=== PATIENT | female | born 1990 | race Caucasian/White ===

== ENCOUNTER 2020-04-24 15:53 | Outpatient (CLI) | payer BC ==
[~2020-04-24] VITALS: Ht 177.8 cm; Wt 113.6 kg
[2020-04-24 15:45] VITALS: BP 129/89
== END 2020-04-24 16:25 | disposition home or self-care (01) ==
LOC: LDOP 15:53
PROVIDERS: ATTEND Obstetrics & Gynecology
DX: O26.893 Other specified pregnancy related conditions, third trimester (principal); R10.9 Unspecified abdominal pain; Z3A.38 38 weeks gestation of pregnancy
CPT/HCPCS: 59025

== ENCOUNTER 2020-05-01 05:17 | Inpatient (IN) | payer BC ==
[~2020-05-01] VITALS: Ht 177.8 cm; Wt 113.6 kg
[2020-05-01] MEDS ORDERED: OXYTOCIN 30U/ 0.9% NaCL 500ML 500 ML IV ONE (05:19)
[2020-05-01] MEDS ORDERED: D5%-LACTATED RINGERS 1,000 ML IV SCH (05:19)
[2020-05-01 05:30] VITALS: BP 188/77
[2020-05-01] MEDS ORDERED: ONDANSETRON 2MG/ML, 2ML IVPush PRN (05:30)
[2020-05-01] MEDS ORDERED: TERBUTALINE 1 MG/ML, 1ML IVPush PRN (05:30)
[2020-05-01] MEDS ORDERED: FENTANYL PF 100 MCG/2ML IVPush PRN (05:30)
[2020-05-01] MEDS ORDERED: TERBUTALINE 1 MG/ML, 1ML SQ PRN (05:30)
[2020-05-01] MEDS ORDERED: FENTANYL PF 100 MCG/2ML IV PRN (05:30)
[2020-05-01] MEDS ORDERED: PREN-3 PO (05:39)
[2020-05-01] MEDS ORDERED: NEWBORN KIT ONE (06:00)
[2020-05-01] MEDS: LACTATED RINGERS 1,000 ML IV SCH ×2 (06:01→08:57)
[2020-05-01 06:24] LABS: BASOPHILS # (AUTO) 0.03 x10^3/uL (0-0.1); BASOPHILS % (AUTO) 0 % (0-1); EOSINOPHILS # (AUTO) 0.05 x10^3/uL (0-0.4); EOSINOPHILS % (AUTO) 1 % (1-7); LYMPHOCYTES % (AUTO) 15 % (22-44); MD NO; MEAN CORPUSCULAR HEMOGLOBIN 33.1 pg (27.0-34.8); MEAN CORPUSCULAR VOLUME 97.2 fL (80-100); MONOCYTES % (AUTO) 5 % (2-9); NEUTROPHILS # (AUTO) 6.43 x10^3/uL (1.8-6.8); NEUTROPHILS % (AUTO) 79 % (42-75); PLATELET COUNT 125 x10^3/uL (130-400); RED BLOOD COUNT 3.65 x10^6/uL (3.82-5.3); RED CELL DISTRIBUTION WIDTH 14.1 % (9.6-15.2)
[2020-05-01] MEDS ORDERED: OXYTOCIN 30U/ 0.9% NaCL 500ML 500 ML IV PRN (06:30)
[2020-05-01] MEDS ORDERED: MISOPROSTOL 200 MCG TABLET ONE (06:32)
[2020-05-01] MEDS ORDERED: LIDOCAINE 1%, 20ML ONE ×2 (06:32→09:05)
[2020-05-01] MEDS ORDERED: OXYTOCIN 30U/ 0.9% NaCL 500ML 500 ML ONE ×2 (06:32→14:51)
[2020-05-01] MEDS ORDERED: CALCIUM CARBONATE 500 MG TAB.CHEW ONE ×3 (08:42→14:11)
[2020-05-01] MEDS: CALCIUM CARBONATE 500 MG TAB.CHEW PO PRN ×3 (08:44→14:12)
[2020-05-01] MEDS ORDERED: FENTANYL/BUPIV./NS/PF 250 ML EPIDCONT ONE ×2 (09:03→09:05)
[2020-05-01] MEDS ORDERED: LIDOCAINE/PF 1.5%-EPI 1:200K, 30ML ONE (09:05)
[2020-05-01] MEDS ORDERED: FENTANYL/BUPIV./NS/PF 250 ML EPIDCONT SCH (10:05)
[2020-05-01] MEDS ORDERED: EPHEDRINE 50 MG/ML, 1ML IVPush PRN (10:30)
[2020-05-01] MEDS ORDERED: NALOXONE 0.4 MG/ML, 1ML IVPush PRN (10:30)
[2020-05-01] MEDS ORDERED: LACTATED RINGERS 1,000 ML IVBOLUS PRN (11:00)
[2020-05-01] MEDS ORDERED: LACTATED RINGERS 1,000 ML IV SCH (11:10)
[2020-05-01] MEDS ORDERED: IBUPROFEN 600 MG TABLET ONE (14:50)
[2020-05-01] MEDS: OXYTOCIN 30U/ 0.9% NaCL 500ML 500 ML IV SCH (14:57)
[2020-05-01] MEDS ORDERED: OXYTOCIN 30U/ 0.9% NaCL 500ML 500 ML IV SCH (14:57)
[2020-05-01] MEDS ORDERED: SIMETHICONE 80 MG CHEW TAB PO PRN (15:00)
[2020-05-01] MEDS ORDERED: MISOPROSTOL 200 MCG TABLET PR PRN (15:00)
[2020-05-01] MEDS ORDERED: DOCUSATE 100 MG CAPSULE PO PRN (15:00)
[2020-05-01 17:10] VITALS: BP 117/81
[2020-05-01 20:19] VITALS: BP 120/86
[2020-05-01] MEDS: IBUPROFEN 600 MG TABLET PO PRN (21:34)
[2020-05-01] MEDS: OXYcodone IR 5MG TABLET PO PRN (23:34)
[2020-05-01 23:40] VITALS: BP 119/75
[2020-05-02 00:06] LABS: BASOPHILS # (AUTO) 0.02 x10^3/uL (0-0.1); BASOPHILS % (AUTO) 0 % (0-1); EOSINOPHILS # (AUTO) 0.03 x10^3/uL (0-0.4); EOSINOPHILS % (AUTO) 0 % (1-7); LYMPHOCYTES # (AUTO) 1.13 x10^3/uL (1-3.4); LYMPHOCYTES % (AUTO) 11 % (22-44); MD NO; MEAN CORPUSCULAR HGB CONC 33.4 g/dL (32.4-35.8); MEAN CORPUSCULAR VOLUME 98.9 fL (80-100); MEAN PLATELET VOLUME 10.7 fL (7.4-10.4); MONOCYTES # (AUTO) 0.49 x10^3/uL (0.2-0.8); MONOCYTES % (AUTO) 5 % (2-9); NEUTROPHILS # (AUTO) 8.73 x10^3/uL (1.8-6.8); NEUTROPHILS % (AUTO) 84 % (42-75); PLATELET COUNT 133 x10^3/uL (130-400); RED BLOOD COUNT 3.19 x10^6/uL (3.82-5.3); RED CELL DISTRIBUTION WIDTH 14.3 % (9.6-15.2)
[2020-05-02] MEDS: OXYTOCIN 30U/ 0.9% NaCL 500ML 500 ML IV SCH ×2 (00:57→10:57)
[2020-05-02 04:05] VITALS: BP 112/70
[2020-05-02 07:15] VITALS: BP 132/89
[2020-05-02] MEDS: IBUPROFEN 600 MG TABLET PO PRN ×2 (07:38→14:37)
[2020-05-02] MEDS: OXYcodone IR 5MG TABLET PO PRN ×2 (08:45→13:09)
[2020-05-02] MEDS: ACETAMINOPHEN 325 MG TABLET PO PRN ×2 (08:45→13:08)
[2020-05-02] MEDS ORDERED: PRENATAL VIT/IRON/FA 1 EACH TABLET PO SCH (09:00)
[2020-05-02 12:10] VITALS: BP 114/77
[2020-05-02] MEDS ORDERED: IBUP-1222 PO (14:29)
[2020-05-02] MEDS ORDERED: OXYC5TAB3 PO (14:30)
== END 2020-05-02 16:10 | disposition home or self-care (01) | DRG 806 ==
LOC: LDIP 05:17 → 2NW 17:20
PROVIDERS: ADMIT Obstetrics & Gynecology; ATTEND Obstetrics & Gynecology
PROC: 10E0XZZ Delivery of Products of Conception, External Approach (ICD-10-PCS; principal; 2020-05-01)
PROC: 0KQM0ZZ Repair Perineum Muscle, Open Approach (ICD-10-PCS; 2020-05-01)
PROC: 0UQMXZZ Repair Vulva, External Approach (ICD-10-PCS; 2020-05-01)
PROC: 3E0R3BZ Introduction of Anesthetic Agent into Spinal Canal, Percutaneous Approach (ICD-10-PCS; 2020-05-01)
PROC: 00HU33Z Insertion of Infusion Device into Spinal Canal, Percutaneous Approach (ICD-10-PCS; 2020-05-01)
DX: O76 Abnormality in fetal heart rate and rhythm complicating labor and delivery (principal); O72.1 Other immediate postpartum hemorrhage; Z37.0 Single live birth; O70.1 Second degree perineal laceration during delivery; O71.82 Other specified trauma to perineum and vulva; O26.893 Other specified pregnancy related conditions, third trimester; Z3A.39 39 weeks gestation of pregnancy
CPT/HCPCS: 36415; J3490; 85025; 86592; 86850; 86900; G0378; J2590; J3010; J7120